=== PATIENT | female | born 1955 | race Caucasian/White ===

== ENCOUNTER → 2017-06-21 | Outpatient (CLI) | payer MEDICAID | LOC: FIMAGING 09:58 | PROVIDERS: ATTEND Internal Medicine Hematology & Oncology | DX: Z12.89 Encounter for screening for malignant neoplasm of other sites (principal); Z85.07 Personal history of malignant neoplasm of pancreas ==

== ENCOUNTER 2018-01-26 17:32 | Inpatient (IN) | payer MEDICAID ==
--- NOTE | 2018-01-26 17:39 | EDPHY ---
H & P Time Seen by Provider: 01/26/18 17:34 HPI/ROS: CHIEF COMPLAINT: Abdominal and back pain HISTORY OF PRESENT ILLNESS: 62-year-old woman got diagnosed with pancreatic cancer about 1 year ago. She had been having worse epigastric abdominal and back pain for the past 2 weeks and saw her oncologist about 10 days ago and started on oral oxycodone. Symptoms today are severe not helped by the pain medication. Not associated with diarrhea but she did have some pretty severe nausea today. She had a normal bowel movement today. Worse with oral intake. REVIEW OF SYSTEMS: Eye: no change in vision ENT: no sore throat Cardiac: no chest pain or syncope Pulmonary: no cough or SOB Abdomen: HPI Musculoskeletal: HPI Skin: no rash Neuro: no headache Constitutional: no fever : no urinary symptoms A comprehensive 10 point review of systems is otherwise negative aside from elements mentioned in the history of present illness. PAST MEDICAL HISTORY: Pancreatic cancer Social history: Here with spouse General Appearance: Alert and conversant, cooperative. Eyes: No scleral icterus. ENT, Mouth: Slightly dry mucous membranes. Respiratory: Normal respiratory effort, breath sounds equal, lungs are clear to auscultation. Cardiovascular: Regular rate and rhythm. Gastrointestinal: Some epigastric tenderness but no rebound or guarding, no peritoneal signs. Neurological: Alert, face symmetric, normal motor and sensory in extremities. Skin: Warm and dry, no rashes. Musculoskeletal: No peripheral edema. Psychiatric: Not agitated. Emergency Department course/MDM: 1758: Discussed with Dr. Parekh and with Dr. Holland, will admit to the hospital for pain control, inadequate on current outpatient oral regimen. Dilaudid 1 mg IV and Zofran 4 mg IV. Labs to include CBC chemistry LFT lipase and protime. Smoking Status: Never smoked Constitutional: Initial Vital Signs Temperature (C) 36.7 C 01/26/18 17:35 Heart Rate 93 01/26/18 17:35 Respiratory Rate 18 01/26/18 17:35 Blood Pressure 124/94 H 01/26/18 17:35 O2 Sat (%) 94 01/26/18 17:35 O2 Delivery Mode Room Air Allergies/Adverse Reactions: nystatin [From Mycostatin] Allergy (Severe, Verified 01/26/18 17:33) Home Medications: Medication Instructions Recorded Oxycodone HCl 01/26/18 Medical Decision Making Differential Diagnosis: Differential considered including but not limited to appendicitis, pancreatic cancer pain, bony metastases, bowel obstruction, pancreatitis, intestinal perforation. - Data Points Laboratory Results: Laboratory Results 01/26/18 17:45 01/26/18 17:45 01/26/1818 01/26/18 17:45 17:45 17:45 WBC 5.52 10^3/uL 10^3/uL (3.80-9.50) RBC 4.43 10^6/uL 10^6/uL (4.18-5.33) Hgb 12.8 g/dL g/dL (12.6-16.3) Hct 37.6 % L % (38.0-47.0) MCV 84.9 fL fL (81.5-99.8) MCH 28.9 pg pg (27.9-34.1) MCHC 34.0 g/dL g/dL (32.4-36.7) RDW 13.0 % % (11.5-15.2) Plt Count 189 10^3/uL 10^3/uL (150-400) MPV 9.2 fL fL (8.7-11.7) Neut % (Auto) 72.0 % % (39.3-74.2) Lymph % (Auto) 16.1 % % (15.0-45.0) Mccone % (Auto) 10.1 % % (4.5-13.0) Eos % (Auto) 0.9 % % (0.6-7.6) Baso % (Auto) 0.7 % % (0.3-1.7) Nucleat RBC Rel Count 0.0 % % (0.0-0.2) Absolute Neuts (auto) 3.97 10^3/uL 10^3/uL (1.70-6.50) Absolute Lymphs (auto) 0.89 10^3/uL L 10^3/uL (1.00-3.00) Absolute Monos (auto) 0.56 10^3/uL 10^3/uL (0.30-0.80) Absolute Eos (auto) 0.05 10^3/uL 10^3/uL (0.03-0.40) Absolute Basos (auto) 0.04 10^3/uL 10^3/uL (0.02-0.10) Absolute Nucleated RBC 0.00 10^3/uL 10^3/uL (0-0.01) Immature Gran % 0.2 % % (0.0-1.1) Immature Gran # 0.01 10^3/uL 10^3/uL (0.00-0.10) PT 14.3 SEC SEC (12.0-15.0) INR 1.09 (0.83-1.16) Sodium 132 mEq/L L mEq/L (135-145) Potassium 3.8 mEq/L mEq/L (3.3-5.0) Chloride 94 mEq/L L mEq/L (97-110) Carbon Dioxide 26 mEq/l mEq/l (22-31) Anion Gap 12 mEq/L mEq/L (8-16) BUN 7 mg/dL mg/dL (7-23) Creatinine 0.5 mg/dL L mg/dL (0.6-1.0) Estimated GFR > 60 Glucose 102 mg/dL H mg/dL (70-100) Calcium 9.2 mg/dL mg/dL (8.5-10.4) Total Bilirubin 0.7 mg/dL mg/dL (0.1-1.4) Conjugated Bilirubin 0.1 mg/dL mg/dL (0.0-0.5) Unconjugated Bilirubin 0.6 mg/dL mg/dL (0.0-1.1) AST 37 IU/L IU/L (14-46) ALT 81 IU/L H IU/L (9-52) Alkaline Phosphatase 79 IU/L IU/L (38-126) Total Protein 6.8 g/dL g/dL (6.3-8.2) Albumin 4.1 g/dL g/dL (3.5-5.0) Lipase 30 IU/L IU/L (23-300) Medications Given: Discontinued Medications Hydromorphone HCl (Dilaudid) 1 mg IVP EDNOW ONE Stop: 01/26/18 17:53 Last Admin: 01/26/18 18:00 Dose: 1 mg Sodium Chloride (Ns) 1,000 mls @ 0 mls/hr IV EDNOW ONE; Wide Open PRN Reason: Protocol Stop: 01/26/18 17:53 Last Admin: 01/26/18 18:00 Dose: 1,000 mls Ondansetron HCl (Zofran) 4 mg IVP EDNOW ONE Stop: 01/26/18 17:53 Last Admin: 01/26/18 18:00 Dose: 4 mg Departure - Departure Disposition: [facility] Acute Clinical Impression: Abdominal pain Qualifiers: Abdominal location: unspecified location Qualified Code(s): R10.9 - Unspecified abdominal pain Pancreatic cancer Qualifiers: Pancreatic malignancy location: unspecified Qualified Code(s): C25.9 - Malignant neoplasm of pancreas, unspecified Condition: Good
[2018-01-26] MEDS ORDERED: ONDANSETRON 4 MG/2 ML VIAL IVP ONE (17:52)
[2018-01-26] MEDS ORDERED: HYDROmorphONE/DILAUDID 2 MG/ML INJ IVP ONE (17:52)
[2018-01-26] MEDS ORDERED: NS 1,000 ML IV ONE (17:52)
[2018-01-26 18:03] LABS: PLATELET COUNT 189 10^3/uL (150-400)
[2018-01-26] MEDS ORDERED: ONDANSETRON DISINTEGRATING 4 MG TAB PO PRN (18:04)
[2018-01-26] MEDS ORDERED: ACETAMINOPHEN 325 MG TAB PO PRN (18:04)
[2018-01-26 18:18] LABS: INR 1.09 (0.83-1.16); PROTIME(PATIENT) 14.3 SEC (12.0-15.0)
[2018-01-26] MEDS ORDERED: BISACODYL 10 MG SUPP PR PRN (18:29)
[2018-01-26] MEDS ORDERED: MAGNESIUM CITRATE 300 ML BOTTLE PO PRN (18:29)
[2018-01-26] MEDS ORDERED: LACTULOSE 20 GM/30 ML UDCUP PO PRN (18:29)
[2018-01-26] MEDS ORDERED: MAGNESIUM HYDROXIDE 30 ML UDCUP PO PRN (18:29)
--- NOTE | 2018-01-26 18:54 | PDGENHP ---
History and Physical - Chief Complaint Abdominal Pain - History of Present Illness Brandt Montes is a 62 yo F with a Pmhx of Pancreatic cancer diagnosed 1 yr ago who presents today with acute on chronic abdominal pain. Her is at bedside who helped with history taking. They report that abdominal pain started about 1 month ago and has significantly increased over the past 48 hours. Pain is located in the epigastric region with radiation to the back. It is described as sharp, currently rated 4/10 after IV pain medication administration. Pain is worse with eating and movement. She has associated nausea with one episode of vomiting 3 days ago. She also reports constipation with last BM this morning after 3 days without one. She has been using magnesium citrate. She was seen by her primary oncologist, Dr. Parekh, 2 weeks ago for this pain and was prescribed 10 mg oxycodone every 4 hours which initially was helping but recently has not improved the pain. She denies any chest pain, SOB, edema, LH/dizziness, hematemesis, melena, hematochezia. History Information - Allergies/Home Medication List Allergies/Adverse Reactions: nystatin [From Mycostatin] Allergy (Severe, Verified 01/26/18 17:33) Home Medications: Ondansetron Odt [Zofran Odt 4 mg (*)] 4 mg PO Q6 PRN 01/26/18 [Last Taken 14:30] Oxycodone HCl 01/26/18 [Last Taken Unknown] I have personally reviewed and updated: family history, medical history, social history, surgical history - Past Medical History cancer - Surgical History Reports: no pertinent surgical hx - Family History Positive for: cancer - Social History Smoking Status: Never smoked Review of Systems Review of Systems: ROS: 10pt was reviewed & negative except for what was stated in HPI & below Physical Exam Physical Exam: Temp Pulse Resp BP Pulse Ox 36.8 C 78 18 135/70 H 97 01/26/18 18:29 01/26/18 18:29 01/26/18 18:29 01/26/18 18:29 01/26/18 18:29 Constitutional: no apparent distress Eyes: PERRL Ears, Nose, Mouth, Throat: moist mucous membranes Cardiovascular: regular rate and rhythym Respiratory: no respiratory distress Gastrointestinal: tenderness (in epigastric region) Genitourinary: no bladder tenderness Skin: warm Musculoskeletal: no muscle tenderness Neurologic: AAOx3 Psychiatric: interacting appropriately Lab Data & Imaging Review 01/26/18 17:45 01/26/18 17:45 WBC 5.52 10^3/uL (3.80-9.50) 01/26/18 17:45 RBC 4.43 10^6/uL (4.18-5.33) 01/26/18 17:45 Hgb 12.8 g/dL (12.6-16.3) 01/26/18 17:45 Hct 37.6 % (38.0-47.0) L 01/26/18 17:45 MCV 84.9 fL (81.5-99.8) 01/26/18 17:45 MCH 28.9 pg (27.9-34.1) 01/26/18 17:45 MCHC 34.0 g/dL (32.4-36.7) 01/26/18 17:45 RDW 13.0 % (11.5-15.2) 01/26/18 17:45 Plt Count 189 10^3/uL (150-400) 01/26/18 17:45 MPV 9.2 fL (8.7-11.7) 01/26/18 17:45 Neut % (Auto) 72.0 % (39.3-74.2) 01/26/18 17:45 Lymph % (Auto) 16.1 % (15.0-45.0) 01/26/18 17:45 Yancey % (Auto) 10.1 % (4.5-13.0) 01/26/18 17:45 Eos % (Auto) 0.9 % (0.6-7.6) 01/26/18 17:45 Baso % (Auto) 0.7 % (0.3-1.7) 01/26/18 17:45 Nucleat RBC Rel Count 0.0 % (0.0-0.2) 01/26/18 17:45 Absolute Neuts (auto) 3.97 10^3/uL (1.70-6.50) 01/26/18 17:45 Absolute Lymphs (auto) 0.89 10^3/uL (1.00-3.00) L 01/26/18 17:45 Absolute Monos (auto) 0.56 10^3/uL (0.30-0.80) 01/26/18 17:45 Absolute Eos (auto) 0.05 10^3/uL (0.03-0.40) 01/26/18 17:45 Absolute Basos (auto) 0.04 10^3/uL (0.02-0.10) 01/26/18 17:45 Absolute Nucleated RBC 0.00 10^3/uL (0-0.01) 01/26/18 17:45 Immature Gran % 0.2 % (0.0-1.1) 01/26/18 17:45 Immature Gran # 0.01 10^3/uL (0.00-0.10) 01/26/18 17:45 PT 14.3 SEC (12.0-15.0) 01/26/18 17:45 INR 1.09 (0.83-1.16) 01/26/18 17:45 Sodium 132 mEq/L (135-145) L 01/26/18 17:45 Potassium 3.8 mEq/L (3.3-5.0) 01/26/18 17:45 Chloride 94 mEq/L (97-110) L 01/26/18 17:45 Carbon Dioxide 26 mEq/l (22-31) 01/26/18 17:45 Anion Gap 12 mEq/L (8-16) 01/26/18 17:45 BUN 7 mg/dL (7-23) 01/26/18 17:45 Creatinine 0.5 mg/dL (0.6-1.0) L 01/26/18 17:45 Estimated GFR > 60 01/26/18 17:45 Glucose 102 mg/dL (70-100) H 01/26/18 17:45 Calcium 9.2 mg/dL (8.5-10.4) 01/26/18 17:45 Total Bilirubin 0.7 mg/dL (0.1-1.4) 01/26/18 17:45 Conjugated Bilirubin 0.1 mg/dL (0.0-0.5) 01/26/18 17:45 Unconjugated Bilirubin 0.6 mg/dL (0.0-1.1) 01/26/18 17:45 AST 37 IU/L (14-46) 01/26/18 17:45 ALT 81 IU/L (9-52) H 01/26/18 17:45 Alkaline Phosphatase 79 IU/L (38-126) 01/26/18 17:45 Total Protein 6.8 g/dL (6.3-8.2) 01/26/18 17:45 Albumin 4.1 g/dL (3.5-5.0) 01/26/18 17:45 Lipase 30 IU/L (23-300) 01/26/18 17:45 Assessment & Plan Assessment: Abdominal pain (Acute) - Duration 1 month with acute worsening in past 48 hours with assoc n/v, constipation - Likely 2/2 to pancreatic cancer - Reports CT Abd 2 weeks ago, not able to locate in system - Lipase WNL, ALT mildly elevated, no other concerning labs to indicate obstruction - Follows with Dr. Parekh, has not had chemotherapy or surgery - Discuss with oncology in the AM if a repeat CT is warranted - Pain and nausea control PRN - May require transition to a long acting pain medication with short acting for breakthrough upon discharge Hyponatremia - Na 132 on admission - Likely hypotonic hyponatremia in setting of decreased PO intake - Will give IVF overnight - F/u BMP in the AM Opioid Induced Constipation - Per patient BM this AM after 3 days without - Will order bowel regimen and magnesium citrate PRN Pancreatic cancer (Acute) - Follows with Dr. Parekh - Oncology consult in the AM FEN: NS @100 ml/hr overnight Ppx: Lovenox Diet: NPO Code: FULL Dispo: Admit to observation, pending clinical course
[2018-01-26] MEDS: HYDROCODONE/APAP 5/325 TAB PO PRN (19:14)
[2018-01-26] MEDS: SENNOSIDES/DOCUSATE SODIUM TAB PO SCH (19:56)
[2018-01-26] MEDS: PROMETHAZINE HCL 25 MG/ML INJ IVP PRN (21:07)
[2018-01-26] MEDS: HYDROmorphONE/DILAUDID 1 MG/ML INJ IVP PRN (21:07)
[2018-01-27] MEDS: HYDROCODONE/APAP 5/325 TAB PO PRN ×4 (01:50→19:46)
[2018-01-27] MEDS: PROMETHAZINE HCL 25 MG/ML INJ IVP PRN (05:00)
[2018-01-27] MEDS: HYDROmorphONE/DILAUDID 1 MG/ML INJ IVP PRN (05:00)
[2018-01-27] MEDS: SENNOSIDES/DOCUSATE SODIUM TAB PO SCH ×2 (08:11→21:04)
[2018-01-27] MEDS ORDERED: ENOXAPARIN 40 MG/0.4 ML SYR SC SCH (09:00)
--- NOTE | 2018-01-27 10:31 | HOSPPROG ---
Hospitalist Progress Note Assessment/Plan: #Acute abdominal pain: Likely multifactorial from cancer, constipation. - PRN IV dilaudid, norco - Considering celiac plexus block - If doesn't get above, may need long-acting opioid with short-acting for breakthrough - Bowel regimen #Pancreatic cancer: Followed by Dr Parekh. Diagnosed fall 2017. Hasn't had chemo. Per patient, had recent CT without significant progression. - Oncology consulted #Hypovolemic hyponatremia: Resolved. Ppx: hold Lovenox with possible procedure Diet: regular Code: FULL Dispo: Continue observation. If pain controlled and tolerating PO, able to dc later today. Otherwise, will keep until tomorrow. Subjective: Didn't sleep much overnight d/t pain. Received iv dilaudid and norco this AM and now pain is completely controlled. Minimal nausea. Last BM yesterday morning. Objective: Vital Signs Temp Pulse Resp BP Pulse Ox 36.5 C 73 16 119/74 97 01/27/18 08:17 01/27/18 08:17 01/27/18 08:17 01/27/18 08:17 01/27/18 08:17 Laboratory Results 01/27/18 03:21 01/26/18 01/27/18 01/28/18 05:59 05:59 05:59 Intake Total 500 Balance 500 PT 14.3 SEC (12.0-15.0) 01/26/18 17:45 INR 1.09 (0.83-1.16) 01/26/18 17:45 - Physical Exam Constitutional: no apparent distress, appears nourished, not in pain Eyes: PERRL, anicteric sclera, EOMI Ears, Nose, Mouth, Throat: moist mucous membranes, hearing normal, ears appear normal, no oral mucosal ulcers Cardiovascular: regular rate and rhythym, no murmur, rub, or gallop Respiratory: no respiratory distress, no rales or rhonchi, clear to auscultation Gastrointestinal: normoactive bowel sounds, soft, non-tender abdomen, no palpable masses Genitourinary: no bladder fullness, no bladder tenderness, no renal bruits Skin: no rashes or abrasions, no fluctuance, no induration Neurologic: AAOx3, sensation intact bilaterally Psychiatric: interacting appropriately, not anxious, not encephalopathic, thought process linear ICD10 Worksheet Patient Problems: Problems Problem Status Onset Abdominal pain Acute Pancreatic cancer Acute
--- NOTE | 2018-01-27 12:21 | ASMTCMCOM ---
CM Note CM Note Notes: Patient seen in interdisciplinary rounds. 62 year old female lives with her admitted via ED for intractable abdominal pain. She has known pancreatic cancer and recently having abdominal pain. Medications being adjusted. Likely to dc independently, CM to follow for needs, Plan: DC to home when medically cleared. Date Signed: 01/27/2018 12:21 PM Electronically Signed By:Ruth Loredo RN
--- NOTE | 2018-01-27 16:57 | PDMN ---
Medical Necessity Medical necessity: [facility] Pain Management GRyo w/ acute abd pain likely r /t pancreatic ca, hyponatremia Na+132, decreased PO intake, IV fluids required, IV opioids for pain control, after 24 hrs pt still requiring IV opioids for pain management, IV antiemetics, not annmarie PO, working on appropriate long acting pain med for d/c, change to IP status 01/27/18 @1508 per MD order as pain not controlled and not tolerating PO requiring another MN.
--- NOTE | 2018-01-27 17:57 | PDCONSULT ---
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 Patient reports the progressive worsening of epigastric abdominal pain over the last 2-3 weeks. She describes the pain is located in the epigastrium with some radiation to the left flank and back. She reports the pain is colicky and stabbing in nature however in the back it feels almost pounding in nature. She reports that the pain has gotten better in the past with eating however hurts more afterwards. She saw Dr. Parekh her primary oncologist on 01/13/2018. At that time her pain was less severe and she was given oxycodone as needed for pain. Patient reports the pain pain is worsening over the last few days and became unbearable which brought her into the emergency room. Patient did have a CT scan on 01/09/2018. At that time it showed that her pancreatic head mass had increased in size from 4.4 x 3.6 cm to 6.1 x 4.0 cm. The tumor infiltrated around the majority of the proximal SMA was also new pancreatic duct dilation and atrophy of the pancreatic body. There is also to 2 hazy tumor infiltration seen around the proximal celiac axis extending toward the right diaphragmatic crura between the aorta and the intrahepatic IVC. Patient was treated overnight with [place] and IV Dilaudid. Patient reports her pain has subsided. She denies fevers chills or drenching night sweats. She does report a roughly is a 7 pound weight loss in the last 2-3 weeks. Review of systems: A complete 12 point review of systems was obtained and found to be negative unless indicated in the history of the present illness Past medical history: Locally advanced pancreatic adenocarcinomapatient has refused traditional therapies Past surgical history: No significant past surgical history Social history: No significant past history of smoking, no alcohol use, no drugs. She is without children. Family history: Mother - bladder cancer in her 80s Maternal grandmother had breast cancer in her 60s Physical examination: Vital signs reviewed General: No acute distress appearing nontoxic appearing female HEENT: Pupils are equal round reactive to light no scleral icterus or conjunctival pallor is appreciated oral mucosa is moist without any evidence of oral pharyngeal lesions Neck: Supple no adenopathy Cardiovascular regular rate and rhythm without rubs thrills gallops or murmurs Chest: Clear to auscultation and percussion bilateral posterior lungs Abdomen: Soft, nondistended, mild pain to palpation in the epigastrium, no rebound or guarding, no organomegaly, fullness palpated in the epigastrium Next extremities: Warm well perfused 2+ dorsalis pedis and radial pulses bilaterally Neurologic: Cranial nerves II through XII are intact 5 out of 5 upper and lower extremity strength bilaterally, alert and oriented x3 Labs and imaging personally reviewed results available in the [facility] Assessment and plan: Patient is a 62-year-old female with history of locally advanced pancreatic adenocarcinoma who presents with acute on chronic epigastric abdominal pain likely secondary to her progressive pancreatic cancer. Problem #1 - cancer related epigastric abdominal pain Patient's current symptoms are likely related to her progressive pancreatic adenocarcinoma. CT scan on 01/09/2018 in the presence of symptoms confirm this. Unlikely in the meantime she is developed anything new such as portal vein thrombosis. Her lipase was normal on presentation ruling out pancreatitis. She has no symptoms concerning for pancreatic insufficiency. -As patient's pain is currently well controlled we will continue with [place] as needed for pain and add a long-acting agent such as MS Contin. -Patient is not interested in evaluation for celiac or SMA block. Problem #2 - locally advanced pancreatic adenocarcinoma Unfortunately patient has missed her opportunity to have operative disease and has progressive locally advanced incurable pancreatic cancer. She has refused conventional therapy. Would agree with consultation with palliative care. Kilo Sun
[2018-01-27] MEDS: morphINE SR 15 MG TAB PO SCH (21:05)
[2018-01-28] MEDS: ONDANSETRON 4 MG/2 ML VIAL IVP PRN ×2 (00:07→11:53)
[2018-01-28] MEDS: HYDROCODONE/APAP 5/325 TAB PO PRN (01:50)
[2018-01-28] MEDS: PROMETHAZINE HCL 25 MG/ML INJ IVP PRN ×2 (01:56→14:29)
[2018-01-28] MEDS: HYDROmorphONE/DILAUDID 1 MG/ML INJ IVP PRN ×7 (04:38→21:45)
[2018-01-28] MEDS: SENNOSIDES/DOCUSATE SODIUM TAB PO SCH ×2 (08:18→21:46)
[2018-01-28] MEDS: morphINE SR 15 MG TAB PO SCH ×2 (08:18→21:45)
[2018-01-28] MEDS: POLYETHYLENE GLYCOL 3350 17 GM PKT PO PRN (11:54)
[2018-01-28] MEDS ORDERED: HYDROmorphONE/DILAUDID 2 MG TAB PO PRN (12:02)
--- NOTE | 2018-01-28 12:56 | ASMTCMCOM ---
CM Note CM Note Notes: Patient plan of care reviewed in rounds. She is contemplating celiac block in IR to aide with reduction of her abdominal pain in the setting of advancing pancreatic cancer. Her pain and nausea have not currently been well controlled. She had been independent at home with her . CM to follow for needs. Plan: TBD Date Signed: 01/28/2018 12:22 PM Electronically Signed By:Ruth Loredo RN
[2018-01-28] MEDS: LORazepam 2 MG/ML INJ IVP PRN ×2 (16:00→21:45)
--- NOTE | 2018-01-28 17:04 | SOAPPROG ---
CINDY Progress Note Assessment/Plan: Assessment/Plan: Patient is a 62-year-old female with history of locally advanced pancreatic adenocarcinoma who presents with acute on chronic epigastric abdominal pain likely secondary to her progressive pancreatic cancer. Problem #1 - cancer related epigastric abdominal pain Patient's current symptoms are likely related to her progressive pancreatic adenocarcinoma. CT scan on 01/09/2018 in the presence of symptoms confirm this. Unlikely in the meantime she is developed anything new such as portal vein thrombosis. Her lipase was normal on presentation ruling out pancreatitis. She has no symptoms concerning for pancreatic insufficiency. It seemed pain control was adequate yesterday however she had peaks of pain overnight and into the morning requiring IV dilaudid. -Recommend having IR evaluate her for celiac plexus block -continue MS contin 15mg BID as baseline pain seems well controlled Problem #2 - locally advanced pancreatic adenocarcinoma Unfortunately patient has missed her opportunity to have operative disease and has progressive locally advanced incurable pancreatic cancer. She has refused conventional therapy. Would agree with consultation with palliative care. [place] Sun Subjective: Patient reports ongoing pain - she required 3 breakthrough doses of pain medication IV despite being put on MS contin. She is also constipated. No new symptoms. Objective: Vital Signs Temp Pulse Resp BP Pulse Ox 37.0 C 93 20 144/82 H 93 01/28/18 15:53 01/28/18 15:53 01/28/18 15:53 01/28/18 15:53 01/28/18 15:53 01/27/18 01/28/18 01/29/18 05:59 05:59 05:59 Intake Total 850 Balance 850 PT 14.3 SEC (12.0-15.0) 01/26/18 17:45 INR 1.09 (0.83-1.16) 01/26/18 17:45 Physical examination: Vital signs reviewed General: No acute distress appearing nontoxic appearing female HEENT: Pupils are equal round reactive to light no scleral icterus or conjunctival pallor is appreciated oral mucosa is moist without any evidence of oral pharyngeal lesions Neck: Supple no adenopathy Cardiovascular regular rate and rhythm without rubs thrills gallops or murmurs Chest: Clear to auscultation and percussion bilateral posterior lungs Abdomen: Soft, nondistended, mild pain to palpation in the epigastrium, no rebound or guarding, no organomegaly, fullness palpated in the epigastrium Next extremities: Warm well perfused 2+ dorsalis pedis and radial pulses bilaterally Neurologic: alert and oriented x3 ICD10 Worksheet Patient Problems: Problems Problem Status Onset Abdominal pain Acute Pancreatic cancer Acute
--- NOTE | 2018-01-28 17:06 | HOSPPROG ---
Hospitalist Progress Note Assessment/Plan: #Acute abdominal pain: Not controlled. Related to progression of pancreatic cancer with involvement of celiac axis and SMA. - Increase MS contin from 15 BID to 15 in am/30 in pm - Increase PRN dilaudid from q4 to q3, has IV and PO available - Discussed with Dr Johnson re: celiac plexus block. Earliest he could perform procedure is . If still inpatient, will consider. - Consult palliative care, patient and very interested #Nausea, emesis: Low concern for bowel obstruction - IV zofran, phenergan PRN #Pancreatic cancer: Followed by Dr Parekh. Diagnosed fall 2017. Progression on recent CT. - Oncology consulted #Hypovolemic hyponatremia: Resolved. Ppx: SCDs Diet: regular Code: FULL Dispo: Continue inpatient admission as still not tolerating PO, requiring IV pain medications Subjective: Had a rough night, lots of pain. Had several episodes of acute sharp pain during day. Also had large volume emesis this afternoon. No fevers. Had BM today. She is more interested in hearing about celiac plexus block now. Objective: Vital Signs Temp Pulse Resp BP Pulse Ox 37.0 C 93 20 144/82 H 93 01/28/18 15:53 01/28/18 15:53 01/28/18 15:53 01/28/18 15:53 01/28/18 15:53 01/27/18 01/28/18 01/29/18 05:59 05:59 05:59 Intake Total 850 Balance 850 PT 14.3 SEC (12.0-15.0) 01/26/18 17:45 INR 1.09 (0.83-1.16) 01/26/18 17:45 ICD10 Worksheet Patient Problems: Problems Problem Status Onset Abdominal pain Acute Pancreatic cancer Acute
[2018-01-29] MEDS: HYDROmorphONE/DILAUDID 1 MG/ML INJ IVP PRN ×2 (01:00→04:00)
[2018-01-29] MEDS: HYDROmorphONE/DILAUDID 2 MG TAB PO PRN ×4 (08:06→23:12)
[2018-01-29] MEDS: morphINE SR 15 MG TAB PO SCH ×2 (08:07→20:20)
[2018-01-29] MEDS: SENNOSIDES/DOCUSATE SODIUM TAB PO SCH ×2 (08:07→20:20)
[2018-01-29] MEDS ORDERED: traMADol 50 MG TAB PO PRN (11:45)
--- NOTE | 2018-01-29 12:44 | ASMTCMCOM ---
CM Note CM Note Notes: Patient plan of care reviewed in interdisciplinary rounds. She is agreeable to information on palliative care. She had integrative care session last evening and is now aware of availbility to her. Her pain is somewhat improved. Matt Lerma and I met with her after rounds and helped relay more information regarding the role palliative care can play in her health . Per the patient they have limited financial resources. Application for matt from [facility] forwarded. No other needs identified at present. CM to follow. Plan: Home with outpatient palliative care via [facility] Date Signed: 01/29/2018 12:43 PM Electronically Signed By:Ruth Loredo RN
[2018-01-29] MEDS: LORazepam 2 MG/ML INJ IVP PRN (13:07)
--- NOTE | 2018-01-29 15:52 | HOSPPROG ---
Hospitalist Progress Note Assessment/Plan: #Acute abdominal pain: Slowly improving. Received 95 morphine equivalents in last 24 hours, split rather evenly between long-acting and breakthrough. Pain related to progression of pancreatic cancer with involvement of celiac axis and SMA. - Continue MS contin 15 in AM/30 in PM - Dilaudid 2mg q3h PRN - Avoid IV dilaudid, use only for very severe breakthrough - Continue ativan PRN, switch to PO - If possible, may meet with IR (Dr Johnson) tomorrow to discuss celiac block. If not, she is interested in seeing him as outpatient - Integrative medicine and palliative care have met with patient #Nausea, emesis: Stable. Low concern for bowel obstruction - Zofran, phenergan PRN #Pancreatic cancer: Followed by Dr Parekh. Diagnosed fall 2017. Progression on recent CT. - Oncology following #Hypovolemic hyponatremia: Resolved. Ppx: SCDs Diet: regular Code: FULL Dispo: Continue inpatient admission as still requiring intermittent IV pain medications. Hopefully discharge tomorrow if pain controlled. Subjective: Doing better today from pain standpoint. Required a couple IV pushes of dilaudid overnight but hasn't used since early AM. Received a couple doses of PO dilaudid throughout day. Had BM yesterday. Objective: Vital Signs Temp Pulse Resp BP Pulse Ox 36.5 C 77 12 110/65 93 01/29/18 08:36 01/29/18 08:36 01/29/18 08:36 01/29/18 08:36 01/29/18 08:36 01/28/18 01/29/18 01/30/18 05:59 05:59 05:59 Intake Total 850 Output Total 1650 Balance 850 -1650 PT 14.3 SEC (12.0-15.0) 01/26/18 17:45 INR 1.09 (0.83-1.16) 01/26/18 17:45 - Physical Exam Constitutional: no apparent distress, appears nourished, not in pain Eyes: PERRL, anicteric sclera, EOMI Ears, Nose, Mouth, Throat: moist mucous membranes, hearing normal, ears appear normal, no oral mucosal ulcers Cardiovascular: regular rate and rhythym, no murmur, rub, or gallop Respiratory: no respiratory distress, no rales or rhonchi, clear to auscultation Gastrointestinal: normoactive bowel sounds, soft, non-tender abdomen, no palpable masses Skin: no rashes or abrasions, no fluctuance, no induration Musculoskeletal: full muscle strength, no muscle tenderness, normal joint ROM Neurologic: AAOx3, sensation intact bilaterally Psychiatric: interacting appropriately, not anxious, not encephalopathic, thought process linear ICD10 Worksheet Patient Problems: Problems Problem Status Onset Abdominal pain Acute Pancreatic cancer Acute
--- NOTE | 2018-01-29 19:55 | SOAPPROG ---
CINDY Progress Note Assessment/Plan: Assessment/Plan: Patient is a 62-year-old female with history of locally advanced pancreatic adenocarcinoma who presents with acute on chronic epigastric abdominal pain likely secondary to her progressive pancreatic cancer. Problem #1 - cancer related epigastric abdominal pain Patient's current symptoms are likely related to her progressive pancreatic adenocarcinoma. CT scan on 01/09/2018 in the presence of symptoms confirm this. Unlikely in the meantime she is developed anything new such as portal vein thrombosis. Her lipase was normal on presentation ruling out pancreatitis. She has no symptoms concerning for pancreatic insufficiency. Patient has still had issues with breakthrough pain, she has used more IV than PO pain medications as needed at this point. -continue MS contin 30mg qhs and 15mg in AM -Limit IV PRN pain medication -Recommend having IR evaluate her for celiac plexus block Problem #2 - locally advanced pancreatic adenocarcinoma Unfortunately patient has missed her opportunity to have operative disease and has progressive locally advanced incurable pancreatic cancer. She has refused conventional therapy. Would agree with consultation with palliative care. Kilo 01/29/18 19:53 Subjective: Patient was given 30mg of mscontin last night and 15mg in the day. She still needed 5x/IV dilaudid. Vomited once yesterday. No change in character of pain. No new pain. Objective: Vital Signs Temp Pulse Resp BP Pulse Ox 36.4 C 86 12 116/73 93 01/29/18 16:00 01/29/18 16:00 01/29/18 16:00 01/29/18 16:00 01/29/18 16:00 01/28/18 01/29/18 01/30/18 05:59 05:59 05:59 Intake Total 850 1200 Output Total 1650 Balance 850 -1650 1200 PT 14.3 SEC (12.0-15.0) 01/26/18 17:45 INR 1.09 (0.83-1.16) 01/26/18 17:45 Physical examination: Vital signs reviewed General: No acute distress appearing nontoxic appearing female HEENT: Pupils are equal round reactive to light no scleral icterus or conjunctival pallor is appreciated oral mucosa is moist without any evidence of oral pharyngeal lesions Neck: Supple no adenopathy Cardiovascular regular rate and rhythm without rubs thrills gallops or murmurs Chest: Clear to auscultation and percussion bilateral posterior lungs Abdomen: Soft, nondistended, mild pain to palpation in the epigastrium, no rebound or guarding, no organomegaly, fullness palpated in the epigastrium Next extremities: Warm well perfused 2+ dorsalis pedis and radial pulses bilaterally Neurologic: alert and oriented x3 ICD10 Worksheet Patient Problems: Problems Problem Status Onset Abdominal pain Acute Pancreatic cancer Acute
[2018-01-29] MEDS: LORazepam 1 MG TAB PO PRN (20:23)
[2018-01-29] MEDS: PROMETHAZINE HCL 25 MG/ML INJ IVP PRN (23:13)
[2018-01-30] MEDS: HYDROmorphONE/DILAUDID 1 MG/ML INJ IVP PRN (03:40)
[2018-01-30] MEDS: morphINE SR 15 MG TAB PO SCH ×2 (10:54→21:16)
[2018-01-30] MEDS: SENNOSIDES/DOCUSATE SODIUM TAB PO SCH ×3 (10:55→21:15)
[2018-01-30] MEDS: POLYETHYLENE GLYCOL 3350 17 GM PKT PO PRN (14:01)
--- NOTE | 2018-01-30 15:02 | ASMTCMCOM ---
CM Note CM Note Notes: Patient plan of care reviewed in interdisciplinary rounds. She is to meet with IR to discuss options of celiac block for abdominal pain likely caused by progression of pancreatic cancer. Kim is to meet with Brandt and her to discuss the role palliative care can play in her symptom management. CM available should other needs arise. Collette Roger Oncology Nurse Navigator following. Plan: Home with palliative care Date Signed: 01/30/2018 03:02 PM Electronically Signed By:Ruth Loredo RN
--- NOTE | 2018-01-30 17:10 | HOSPPROG ---
Hospitalist Progress Note Assessment/Plan: #Acute abdominal pain: Slowly improving but getting nauseated with dilaudid. Will switch to oxycodone. Pain related to progression of pancreatic cancer with involvement of celiac axis and SMA. - Continue MS contin 15 in AM/30 in PM - Discontinue dilaudid - Start oxycodone 5-10mg q3h PRN - Continue ativan PO PRN - Avoid IV medications in anticipation of going home - Got info on celiac plexus block, she wants to wait on this - Integrative medicine and palliative care have met with patient #Nausea, emesis: Stable. Low concern for bowel obstruction - Zofran, phenergan PRN #Pancreatic cancer: Followed by Dr Parekh. Diagnosed fall 2017. Progression on recent CT. - Oncology following #Hypovolemic hyponatremia: Resolved. Ppx: SCDs Diet: regular Code: FULL Dispo: Continue inpatient admission as still requiring intermittent IV pain medications, titration of PO pain medications. Plan to discharge tomorrow if pain controlled. Subjective: Had rough morning, vomited and increased pain. Required some IV dilaudid. She still doesn't feel ready to go home. Met with Dr Richmond, doesn 't want celiac plexus block yet. Objective: Vital Signs Temp Pulse Resp BP Pulse Ox 36.6 C 89 16 123/83 H 92 01/30/18 16:37 01/30/18 16:37 01/30/18 16:37 01/30/18 16:37 01/30/18 16:37 01/29/18 01/30/18 01/31/18 05:59 05:59 05:59 Intake Total 1400 Output Total 1650 Balance -1650 1400 PT 14.3 SEC (12.0-15.0) 01/26/18 17:45 INR 1.09 (0.83-1.16) 01/26/18 17:45 - Physical Exam Constitutional: no apparent distress, appears nourished, not in pain, uncomfortable (intremittently) Eyes: PERRL, anicteric sclera, EOMI Ears, Nose, Mouth, Throat: moist mucous membranes, hearing normal, ears appear normal, no oral mucosal ulcers Cardiovascular: regular rate and rhythym, no murmur, rub, or gallop Respiratory: no respiratory distress, no rales or rhonchi, clear to auscultation Gastrointestinal: normoactive bowel sounds, soft, non-tender abdomen, no palpable masses Skin: no rashes or abrasions, no fluctuance, no induration Musculoskeletal: full muscle strength, no muscle tenderness, normal joint ROM Neurologic: AAOx3, sensation intact bilaterally Psychiatric: interacting appropriately, not anxious, not encephalopathic, thought process linear ICD10 Worksheet Patient Problems: Problems Problem Status Onset Abdominal pain Acute Pancreatic cancer Acute
[2018-01-30] MEDS: LORazepam 1 MG TAB PO PRN ×2 (17:16→21:16)
[2018-01-31] MEDS: oxyCODONE IR 5 MG TAB PO PRN ×2 (05:41→13:42)
[2018-01-31 09:13] VITALS: BP 107/72
[2018-01-31] MEDS: morphINE SR 15 MG TAB PO SCH (09:15)
[2018-01-31] MEDS: SENNOSIDES/DOCUSATE SODIUM TAB PO SCH (09:16)
--- NOTE | 2018-01-31 11:43 | ASMTCMCOM ---
CM Note CM Note Notes: Patient plan of care reviewed with Dr. Hargrove. The patient wishes to go home and will be discharged, No needs identified. [facility] Palliative care to follow as outpatient. Oli Dee janey pending approval. CM available should other needs arise. Plan: Home with no needs. Date Signed: 01/31/2018 11:42 AM Electronically Signed By:Ruth Loredo RN
--- NOTE | 2018-01-31 13:40 | PDDCSUM ---
Discharge Summary Discharge Summary: Date of Admission: 01/26/2018 Date of Discharge: 01/31/2018 Consultants: oncology, IR Discharge Diagnoses: 1. Cancer related abdominal pain 2. Locally advanced pancreatic adenocarcinoma Brief Hospital Course: 62yo F with locally advanced pancreatic adenocarcinoma (for which she has refused conventional therapy) presented with acute worsening or chronic abdominal pain. She had just been started on oxycodone by her oncologist but this wasn't working anymore. Recent outpatient CT on 01/09/18 showed progression of pancreatic tumor size (from 4.4x3.6cm to 6.1x4.0cm) with tumor now infiltrating around the majority of the proximal SMA as well as proximal celiac axis. We consulted IR but patient declined to get celiac plexus block. Titration of her pain medications was a bit of a challenge but ultimately we settled on MS contin 15mg in AM and 30mg in PM with oxycodone IR 5-10mg PRN for breakthrough. In addition, she responded well to ativan PO PRN and was given a supply of this. She was tolerating PO well and moving her bowels. Medications: Please refer to EMR. Changes this admission include addition of MS contin and ativan. Follow Up Plan: 1. Has appt with Dr Parekh on 02/05 2. Referral was made for outpatient palliative care 3. She plans to see the integrative medicine team 4. Consider celiac plexus block for worsening pain in the future Physical Exam: Vitals reviewed, afebrile and stable. A&O, RRR without murmur, lungs clear, abdomen soft and nontender with active bowel sounds, no rashes or edema.
--- NOTE | 2018-01-31 13:59 | ASMTDCNOTE ---
Case Management Discharge Discharge Order Complete? Answers: Yes Patient to Obtain Answers: via Family Medications Transportation Arranged Answers: Family/Friends Family Notified Answers: Yes Discharge Comments Notes: Pt is discharging home today with her and no CM needs. Date Signed: 01/31/2018 01:57 PM Electronically Signed By:AMADA Bettencourt
--- NOTE | 2018-01-31 14:00 | ASMTLACE ---
LACE Length of stay for Answers: 4-6 days current admission Acuity / Level of Answers: Yes Care: Did the patient have an inpatient admission? Comorbidities - select Answers: Any tumor (including all that apply lymphoma or leukemia) # of Emergency department Answers: 1-2 visits in the last 6 months Score: 10 Date Signed: 01/31/2018 01:58 PM Electronically Signed By:AMADA Bettencourt
--- NOTE | 2018-01-31 14:05 | ASDISCHSUM ---
Discharge Information Plan Status:Outpatient Palliative Care Medically Cleared to Leave:01/31/2018 Discharge Date:01/31/2018 CM D/C Disposition:Home, Routine, Self-Care ADT D/C Disposition:Home, Routine, Self-Care Projected Discharge Date:01/31/2018 11:00 AM Transportation at D/C:Family Discharge Delay Reason: Follow-Up Date:01/31/2018 11:00 AM Discharge Slot: Final Diagnosis: Placement Information Referral Type:Palliative Care Referral ID:[id number] Provider Name:[facility] Address 1:[address] Phone Number: Address 2: Fax Number: City:[place] Selection Factors: State:[place] Patient Contact Information Contact Name:KENN Relationship: Address:[facility] [address] Work Phone: [facility] Phone: [facility] Code:[place] [address] Email: Financial Information Financial Class:Medicaid Primary Plan Desc:MEDICA[employer] FIRST MD IP Primary Plan Number:[id number] Secondary Plan Desc: Secondary Plan Number: Assessment Information LACE LACE Length of stay for Answers: 4-6 days current admission Acuity / Level of Answers: Yes Care: Did the patient have an inpatient admission? Comorbidities - select Answers: Any tumor (including all that apply lymphoma or leukemia) # of Emergency department Answers: 1-2 visits in the last 6 months Score: 10 Date Signed: 01/31/2018 01:58 PM Electronically Signed By:AMADA Bettencourt [facility] Progress Note CM Note CM Note Notes: Patient seen in interdisciplinary rounds. 62 year old female lives with her admitted via ED for intractable abdominal pain. She has known pancreatic cancer and recently having abdominal pain. Medications being adjusted. Likely to dc independently, CM to follow for needs, Plan: DC to home when medically cleared. Date Signed: 01/27/2018 12:21 PM Electronically Signed By:Ruth Loredo RN [facility] CM Progress Note CM Note CM Note Notes: Patient plan of care reviewed in rounds. She is contemplating celiac block in IR to aide with reduction of her abdominal pain in the setting of advancing pancreatic cancer. Her pain and nausea have not currently been well controlled. She had been independent at home with her . CM to follow for needs. Plan: TBD Date Signed: 01/28/2018 12:22 PM Electronically Signed By:Ruth Loredo RN [facility] CM Progress Note CM Note CM Note Notes: Patient plan of care reviewed in interdisciplinary rounds. She is agreeable to information on palliative care. She had integrative care session last evening and is now aware of availbility to her. Her pain is somewhat improved. Janey Lerma and I met with her after rounds and helped relay more information regarding the role palliative care can play in her health . Per the patient they have limited financial resources. Application for janey from [employer] forwarded. No other needs identified at present. CM to follow. Plan: Home with outpatient palliative care via [facility] Date Signed: 01/29/2018 12:43 PM Electronically Signed By:Ruth Loredo RN [facility] CM Progress Note CM Note CM Note Notes: Patient plan of care reviewed in interdisciplinary rounds. She is to meet with IR to discuss options of celiac block for abdominal pain likely caused by progression of pancreatic cancer. Kim is to meet with Brandt and her to discuss the role palliative care can play in her symptom management. CM available should other needs arise. Collette Roger Oncology Nurse Navigator following. Plan: Home with palliative care Date Signed: 01/30/2018 03:02 PM Electronically Signed By:Ruth Loredo RN [facility] CM Progress Note CM Note CM Note Notes: Patient plan of care reviewed with Dr. Hargrove. The patient wishes to go home and will be discharged, No needs identified. [facility] Palliative care to follow as outpatient. Oli Dee janey pending approval. CM available should other needs arise. Plan: Home with no needs. Date Signed: 01/31/2018 11:42 AM Electronically Signed By:Ruth Loredo RN Case Management Discharge Plan Note Case Management Discharge Discharge Order Complete? Answers: Yes Patient to Obtain Answers: via Family Medications Transportation Arranged Answers: Family/Friends Family Notified Answers: Yes Discharge Comments Notes: Pt is discharging home today with her and no CM needs. Date Signed: 01/31/2018 01:57 PM Electronically Signed By:AMADA Bettencourt Intervention Information
== END 2018-01-31 14:51 | disposition home or self-care (01) | DRG 281 ==
LOC: F1N 18:37 → OBSVTOIN 01-27 15:08
PROVIDERS: ADMIT Internal Medicine; ATTEND Internal Medicine
DX: C25.9 Malignant neoplasm of pancreas, unspecified (principal); E86.9 Volume depletion, unspecified; G89.3 Neoplasm related pain (acute) (chronic); K59.03 Drug induced constipation; T40.2X5A Adverse effect of other opioids, initial encounter
CPT/HCPCS: 96374; 97165-GO; G0378; J1170; J1650; J2060; J2405; J2550

== ENCOUNTER 2018-02-01 02:23 | Inpatient (IN) | payer MEDICAID ==
[2018-02-01] MEDS ORDERED: ONDANSETRON 4 MG/2 ML VIAL ONE (02:46)
[2018-02-01] MEDS ORDERED: HYDROmorphONE/DILAUDID 2 MG/ML INJ ONE (02:47)
[2018-02-01] MEDS ORDERED: ONDANSETRON 4 MG/2 ML VIAL IVP ONE (02:49)
[2018-02-01] MEDS ORDERED: NS 1,000 ML IV ONE (02:50)
[2018-02-01] MEDS ORDERED: HYDROmorphONE/DILAUDID 2 MG/ML INJ IVP ONE (02:50)
[2018-02-01 02:56] LABS: PLATELET COUNT 223 10^3/uL (150-400)
--- NOTE | 2018-02-01 03:01 | EDPHY ---
H & P Stated Complaint: N/V DC'd today Pancreatic CA Time Seen by Provider: 02/01/18 02:50 HPI/ROS: Chief Complaint: Abdominal pain, nausea, vomiting HPI: 62-year-old woman with advanced pancreatic cancer is presenting with nausea vomiting and abdominal pain. She was discharged from the hospital 11 hr ago after a 4 day admission for abdominal pain. She went home on MS Contin and ondansetron orally. Patient states that when she got home her pain became severe again she has been unable to keep down her oral medications. Pain is exactly like when she presented her before. Is an 12/06. No fevers or chills. ROS: 10 systems were reviewed and were negative except those elements noted in the HPI. PMH: pancreatic cancer Social History: No smoking, no alcohol, no recreational drug use Family History: non-contributory Physical Exam: Gen: Awake, Alert, No Distress HEENT: Nose: no rhinorrhea Eyes: PERRLA, EOMI Mouth: Moist mucosa Neck: Supple, no JVD Chest: nontender, lungs clear to auscultation Heart: S1, S2 normal, no murmur Abd: Soft, diffuse upper abdominal tenderness Back: no CVA tenderness, no midline tenderness Ext: no edema, non-tender Skin: no rash Neuro: CN II-XII intact, Sensation grossly intact, Strength 5/5 in bilateral upper and lower extremities - Personal History Current Tetanus/Diphtheria Vaccine: Unsure Current Tetanus Diphtheria and Acellular Pertussis (TDAP): Unsure - Medical/Surgical History Hx Asthma: No Hx Chronic Respiratory Disease: No Hx Diabetes: No Hx Cardiac Disease: No Hx Renal Disease: No Hx Cirrhosis: No Hx Alcoholism: No Hx HIV/AIDS: No Hx Splenectomy or Spleen Trauma: No Other PMH: PANCREATIC CANCER - Social History Smoking Status: Never smoked Constitutional: Initial Vital Signs Temperature (C) 37 C 02/01/18 02:24 Heart Rate 103 H 02/01/18 02:24 Respiratory Rate 16 02/01/18 02:24 Blood Pressure 129/83 H 02/01/18 02:24 O2 Sat (%) 95 02/01/18 02:24 O2 Delivery Mode Room Air Allergies/Adverse Reactions: nystatin [From Mycostatin] Allergy (Severe, Verified 01/26/18 17:33) Home Medications: Medication Instructions Recorded LORazepam [Ativan (*)] 1 mg PO Q6H PRN #20 tab 01/31/18 Ondansetron Odt [Zofran Odt 4 mg 4 mg PO Q6H PRN #20 tab 01/31/18 (*)] morphINE SR [Ms Contin/Oramorph 15 15 mg PO DAILY #15 tab 01/31/18 mg (*)] morphINE SR [Ms Contin/Oramorph 15 30 mg PO HS #15 tab 01/31/18 mg (*)] oxyCODONE IR [Oxycodone Ir (*)] 5 - 10 mg PO Q3H PRN #30 tab 01/31/18 Medical Decision Making ED Course/Re-evaluation: Patient has uncontrolled abdominal pain secondary to a pancreatic cancer. She has failed outpatient treatment. I have discussed with Dr. Mike, hospitalist. She will admit to her service for pain control and further care. - Data Points Laboratory Results: Laboratory Results 02/01/18 02:48 02/01/18 02/01/18 02:48 02:48 WBC 5.72 10^3/uL 10^3/uL (3.80-9.50) RBC 4.92 10^6/uL 10^6/uL (4.18-5.33) Hgb 14.3 g/dL g/dL (12.6-16.3) Hct 41.6 % % (38.0-47.0) MCV 84.6 fL fL (81.5-99.8) MCH 29.1 pg pg (27.9-34.1) MCHC 34.4 g/dL g/dL (32.4-36.7) RDW 12.7 % % (11.5-15.2) Plt Count 223 10^3/uL 10^3/uL (150-400) MPV 9.3 fL fL (8.7-11.7) Neut % (Auto) 69.4 % % (39.3-74.2) Lymph % (Auto) 14.7 % L % (15.0-45.0) [place] % (Auto) 14.0 % H % (4.5-13.0) Eos % (Auto) 1.0 % % (0.6-7.6) Baso % (Auto) 0.7 % % (0.3-1.7) Nucleat RBC Rel Count 0.0 % % (0.0-0.2) Absolute Neuts (auto) 3.97 10^3/uL 10^3/uL (1.70-6.50) Absolute Lymphs (auto) 0.84 10^3/uL L 10^3/uL (1.00-3.00) Absolute Monos (auto) 0.80 10^3/uL 10^3/uL (0.30-0.80) Absolute Eos (auto) 0.06 10^3/uL 10^3/uL (0.03-0.40) Absolute Basos (auto) 0.04 10^3/uL 10^3/uL (0.02-0.10) Absolute Nucleated RBC 0.00 10^3/uL 10^3/uL (0-0.01) Immature Gran % 0.2 % % (0.0-1.1) Immature Gran # 0.01 10^3/uL 10^3/uL (0.00-0.10) Sodium Pending Potassium Pending Chloride Pending Carbon Dioxide Pending Anion Gap Pending BUN Pending Creatinine Pending Estimated GFR Pending Glucose Pending Calcium Pending Medications Given: Discontinued Medications Hydromorphone HCl (Dilaudid) 1 mg IVP EDNOW ONE Stop: 02/01/18 02:51 Last Admin: 02/01/18 02:52 Dose: 1 mg Sodium Chloride (Ns) 1,000 mls @ 0 mls/hr IV ONCE ONE; Wide Open PRN Reason: Protocol Stop: 02/01/18 02:51 Last Admin: 02/01/18 02:52 Dose: 1,000 mls Ondansetron HCl (Zofran) 4 mg IVP EDNOW ONE Stop: 02/01/18 02:50 Last Admin: 02/01/18 02:52 Dose: 4 mg Departure - Departure Disposition: [facility] Inpatient Acute Clinical Impression: Abdominal pain, Pancreatic cancer Condition: Fair Referrals: Annamarie Acevedo MD [Primary Care Provider] - As per Instructions
[2018-02-01] MEDS ORDERED: METOCLOPRAMIDE 10 MG/2 ML VIAL IVP PRN (04:25)
[2018-02-01] MEDS ORDERED: ACETAMINOPHEN 325 MG TAB PO PRN (04:25)
[2018-02-01] MEDS ORDERED: LORazepam 0.5 MG TAB PO PRN (04:25)
[2018-02-01] MEDS ORDERED: diphenhydrAMINE 25 MG CAP PO PRN (04:25)
[2018-02-01] MEDS: oxyCODONE IR 5 MG TAB PO PRN ×2 (04:44→23:48)
[2018-02-01] MEDS: ONDANSETRON 4 MG/2 ML VIAL IVP PRN ×4 (04:44→22:06)
[2018-02-01] MEDS: HYDROmorphONE/DILAUDID 1 MG/ML INJ IVP PRN ×3 (05:01→23:55)
--- NOTE | 2018-02-01 07:17 | PDGENHP ---
History and Physical - Chief Complaint Intractable nausea vomiting and abdominal pain - History of Present Illness Source-patient provides history appears reliable EMR was reviewed and case discussed with ED provider. HPI-this is a pleasant 62-year-old lady with a past medical history significant for locally invasive the in pancreatic adenocarcinoma who was just discharged from hospital for intractable nausea vomiting abdominal pain 11 hr prior to arrival back in the ER. Patient was previously diagnosed with adenocarcinoma pancreas years ago and had previously declined any kind of intervention. Since that time she has had increasing abdominal pain. She was admitted for pain control and it was thought that she had a good regimen on board that she was willing to continue with however when she got home patient is reports that she was unable to keep anything down and so her pain escalated. Patient denies any fevers or chills. No increased abdominal distension. No diarrhea. In fact patient reports that she has been having some constipation. During her previous hospital stay patient was offered the option need to consider a celiac plexus block however patient was concerned that given this would be the last alternative she wanted to try to utilize on oral medications for control of her nausea vomiting and abdominal pain. History Information - Allergies/Home Medication List Allergies/Adverse Reactions: nystatin [From Mycostatin] Allergy (Severe, Verified 01/26/18 17:33) I have personally reviewed and updated: family history, medical history, social history, surgical history - Past Medical History Additional medical history: Locally invasive pancreatic adenocarcinoma. Chronic oncologic abdominal pain. Recurrent nausea vomiting - Surgical History Reports: no pertinent surgical hx - Family History Positive for: cancer Additional family history: Mother with bladder cancer maternal grandmother breast cancer in his 60s. - Social History Smoking Status: Never smoked Alcohol Use: None Drug Use: None Additional social history: Patient is her is bedside. Cor status-full. Review of Systems Review of Systems: ROS: 10pt was reviewed & negative except for what was stated in HPI & below Constitutional: Reports: weakness (Generalized). Denies: chills, fever Respiratory: Reports: no symptoms Gastrointestinal: Reports: vomitting, abdominal pain, nausea. Denies: abdominal distention Physical Exam Physical Exam: Selected Entries 02/01/18 02:24 Blood Pressure Automatic Method Heart Rate 103 H Respiratory 16 Rate O2 Sat (%) 95 Temperature (C) 37 C Blood Pressure 129/83 H Mean Arterial 98 Pressure (MAP) O2 Delivery Room Air Mode Temperature Oral Source Temp Pulse Resp BP Pulse Ox 36.6 C 84 14 121/76 H 98 02/01/18 03:42 02/01/18 03:42 02/01/18 03:42 02/01/18 03:42 02/01/18 03:42 O2 (L/minute) 2 Constitutional: no apparent distress, chronically ill appearing, uncomfortable, other (No acute distress. Patient is lying asleep in bed. She wakes easily to her name and in fairly good spirits. Does appear acutely ill fatigue have but pleasant and cooperative.) Eyes: PERRL, anicteric sclera, EOMI, No scleral injection Ears, Nose, Mouth, Throat: dry mucous membranes, other (No nasal discharge), No poor dentition Cardiovascular: regular rate and rhythym, no murmur, rub, or gallop, tachycardia , No edema Peripheral Pulses: 2+: dorsalis-pedis (R), dorsalis-pedis (L) Respiratory: no respiratory distress, no rales or rhonchi, clear to auscultation , No expiratory wheeze, No inspiratory crackles Gastrointestinal: other (Hypoactive bowel sounds. Soft but full. Nondistended. ), No rebound, No distension Genitourinary: no bladder tenderness, No soto in urethra Skin: warm, no rashes or abrasions, no fluctuance, other (Pallor) Musculoskeletal: generalized weakness, other (Patient moves all extremities able to up independently.) Neurologic: AAOx3, other (Grossly nonfocal), No facial droop Psychiatric: interacting appropriately, not anxious, not encephalopathic, thought process linear, other (Patient pleasant and cooperative.) Lab Data & Imaging Review 02/01/18 02:48 02/01/18 02:48 WBC 5.72 10^3/uL (3.80-9.50) 02/01/18 02:48 RBC 4.92 10^6/uL (4.18-5.33) 02/01/18 02:48 Hgb 14.3 g/dL (12.6-16.3) 02/01/18 02:48 Hct 41.6 % (38.0-47.0) 02/01/18 02:48 MCV 84.6 fL (81.5-99.8) 02/01/18 02:48 MCH 29.1 pg (27.9-34.1) 02/01/18 02:48 MCHC 34.4 g/dL (32.4-36.7) 02/01/18 02:48 RDW 12.7 % (11.5-15.2) 02/01/18 02:48 Plt Count 223 10^3/uL (150-400) 02/01/18 02:48 MPV 9.3 fL (8.7-11.7) 02/01/18 02:48 Neut % (Auto) 69.4 % (39.3-74.2) 02/01/18 02:48 Lymph % (Auto) 14.7 % (15.0-45.0) L 02/01/18 02:48 Kimble % (Auto) 14.0 % (4.5-13.0) H 02/01/18 02:48 Eos % (Auto) 1.0 % (0.6-7.6) 02/01/18 02:48 Baso % (Auto) 0.7 % (0.3-1.7) 02/01/18 02:48 Nucleat RBC Rel Count 0.0 % (0.0-0.2) 02/01/18 02:48 Absolute Neuts (auto) 3.97 10^3/uL (1.70-6.50) 02/01/18 02:48 Absolute Lymphs (auto) 0.84 10^3/uL (1.00-3.00) L 02/01/18 02:48 Absolute Monos (auto) 0.80 10^3/uL (0.30-0.80) 02/01/18 02:48 Absolute Eos (auto) 0.06 10^3/uL (0.03-0.40) 02/01/18 02:48 Absolute Basos (auto) 0.04 10^3/uL (0.02-0.10) 02/01/18 02:48 Absolute Nucleated RBC 0.00 10^3/uL (0-0.01) 02/01/18 02:48 Immature Gran % 0.2 % (0.0-1.1) 02/01/18 02:48 Immature Gran # 0.01 10^3/uL (0.00-0.10) 02/01/18 02:48 Sodium 135 mEq/L (135-145) 02/01/18 02:48 Potassium 3.8 mEq/L (3.3-5.0) 02/01/18 02:48 Chloride 92 mEq/L (97-110) L 02/01/18 02:48 Carbon Dioxide 29 mEq/l (22-31) 02/01/18 02:48 Anion Gap 14 mEq/L (8-16) 02/01/18 02:48 BUN 13 mg/dL (7-23) 02/01/18 02:48 Creatinine 0.5 mg/dL (0.6-1.0) L 02/01/18 02:48 Estimated GFR > 60 02/01/18 02:48 Glucose 129 mg/dL (70-100) H 02/01/18 02:48 Calcium 9.5 mg/dL (8.5-10.4) 02/01/18 02:48 Assessment & Plan Assessment: 62-year-old female with history of locally invasive pancreatic adenocarcinoma with extension around the SMA presents back to the hospital with complaints of intractable abdominal pain nausea vomiting. Acute on chronic oncologic abdominal pain - patient received Dilaudid and antiemetics in the emergency department. She is on had improvement in her symptoms with continued use of IV pain medications and antiemetics. Again reviewed with the patient her option to consider a celiac plexus block but she is not yet ready to eliminate all her options for oral control at home. Possibly consider discharge with suppository options or Intractable nausea vomiting - improved with antiemetics. Pancreatic cancer (Acute) - on repeated imaging on most recent hospital admission showed enlargement of the tumor with extension around the SMA. Is no longer amenable to any intervention. Patient previously declined any treatment. Hypochloremia likely related to volume depletion in setting of nausea vomiting. Continue with IV fluids monitor. opiate induced constipation - bowel protocol ordered. FEN - NS for gentle hydration. encourage po hydration when nausea/vomiting with improved control. advance diet as tolerated. PPX - SCDs. holding anticoagulation pending additional discussion with patient regarding consideration for block. COR - FULL. Dispo - Patient admitted to observation on med/onc floor pending imrpovement in sx.
[2018-02-01] MEDS ORDERED: LACTULOSE 20 GM/30 ML UDCUP PO PRN (07:38)
[2018-02-01] MEDS ORDERED: POLYETHYLENE GLYCOL 3350 17 GM PKT PO PRN ×2 (07:38→17:11)
[2018-02-01] MEDS ORDERED: MAGNESIUM HYDROXIDE 30 ML UDCUP PO PRN (07:38)
[2018-02-01] MEDS: SENNOSIDES/DOCUSATE SODIUM TAB PO SCH ×2 (10:32→22:58)
--- NOTE | 2018-02-01 14:11 | ASMTCMCOM ---
CM Note CM Note Notes: Pt returns to the hospital after discharging yesterday. She has pancreatic ca diagnosed a few years ago and has declined intervention. Pt in chronic abdominal pain, returns with worsening pain. Pt lives at home with her and was dc'd with no needs, Kim was to f/u with pt at home. Anticipate when pain is under control she will dc home w/support of . DC Plan: Kim oupt Date Signed: 02/01/2018 02:10 PM Electronically Signed By:Blanca Bojorquez RN
[2018-02-01] MEDS ORDERED: ONDANSETRON DISINTEGRATING 4 MG TAB PO PRN (15:41)
[2018-02-01] MEDS ORDERED: POLYETHYLENE GLYCOL 3350 17 GM PKT PO ONE (17:15)
[2018-02-01] MEDS: morphINE SR 15 MG TAB PO SCH (22:58)
[2018-02-02] MEDS: ONDANSETRON 4 MG/2 ML VIAL IVP PRN ×3 (02:17→18:00)
[2018-02-02] MEDS: NS 1,000 ML IV SCH ×2 (02:57→16:34)
[2018-02-02] MEDS: HYDROmorphONE/DILAUDID 1 MG/ML INJ IVP PRN ×7 (03:26→21:31)
[2018-02-02] MEDS: PROMETHAZINE HCL 25 MG/ML INJ IVP PRN ×2 (05:01→10:54)
[2018-02-02] MEDS: POLYETHYLENE GLYCOL 3350 17 GM PKT PO SCH (10:54)
[2018-02-02] MEDS: morphINE SR 15 MG TAB PO SCH ×2 (10:54→19:50)
[2018-02-02] MEDS: SENNOSIDES/DOCUSATE SODIUM TAB PO SCH ×2 (10:55→19:51)
[2018-02-02] MEDS: BISACODYL 10 MG SUPP PR PRN (14:01)
[2018-02-02] MEDS ORDERED: MAGNESIUM CITRATE 300 ML BOTTLE PO ONE (14:12)
[2018-02-02] MEDS ORDERED: BISACODYL 10 MG SUPP PR ONE (14:12)
--- NOTE | 2018-02-02 14:12 | HOSPPROG ---
Hospitalist Progress Note Assessment/Plan: 62 yo F w pancreatic CA here w abd pain and constipation constipation: i think this is really driving her sx enema and suppository film not suggestive of obstruction abd pain: rec celiac nerve block continue morphine as prescribed vomiting: likely constipation some concern that pain meds could be causing follow proph: lmwh dispo: inpt Subjective: abd film w likely no obstruction, no free air (interp by me). vomitied after lactulose Objective: Vital Signs Temp Pulse Resp BP Pulse Ox 36.6 C 84 14 126/74 H 94 02/02/18 08:54 02/02/18 08:54 02/02/18 08:54 02/02/18 08:54 02/02/18 08:54 02/01/18 02/02/18 02/03/18 05:59 05:59 05:59 Intake Total 1300 750 900 Output Total 1750 Balance 1300 -1000 900 - Physical Exam Constitutional: no apparent distress, appears nourished Eyes: PERRL, anicteric sclera Ears, Nose, Mouth, Throat: moist mucous membranes, hearing normal Cardiovascular: regular rate and rhythym, no murmur, rub, or gallop Respiratory: no respiratory distress, no rales or rhonchi Gastrointestinal: other (bowel sounds hypoactive but present) Genitourinary: No soto in urethra Skin: warm, normal color Musculoskeletal: full muscle strength, no muscle tenderness ICD10 Worksheet Patient Problems: Problems Problem Status Onset Abdominal pain Acute Pancreatic cancer Acute
[2018-02-02] MEDS: LORazepam 1 MG TAB PO PRN (17:46)
[2018-02-02] MEDS: oxyCODONE IR 5 MG TAB PO PRN (19:46)
[2018-02-03] MEDS: oxyCODONE IR 5 MG TAB PO PRN ×4 (00:25→21:23)
[2018-02-03] MEDS: LORazepam 1 MG TAB PO PRN (00:25)
[2018-02-03] MEDS: NS 1,000 ML IV SCH (03:49)
[2018-02-03] MEDS: HYDROmorphONE/DILAUDID 1 MG/ML INJ IVP PRN (06:17)
[2018-02-03] MEDS: SENNOSIDES/DOCUSATE SODIUM TAB PO SCH ×2 (09:54→21:22)
[2018-02-03] MEDS: morphINE SR 15 MG TAB PO SCH ×2 (09:54→21:00)
[2018-02-03] MEDS: POLYETHYLENE GLYCOL 3350 17 GM PKT PO SCH (09:59)
[2018-02-03] MEDS: ENOXAPARIN 40 MG/0.4 ML SYR SC SCH (10:00)
--- NOTE | 2018-02-03 11:41 | ASMTCMCOM ---
CM Note CM Note Notes: Patient reviewed in rounds. She is very anxious and shares with me that her pain was not controlled at home. Palliative Care was to see her today. I have spoken to Kim and they will come to see her between 1:30 and 3:30 to assist with symptom control. She is still contemplating plexus block. CM to follow for needs. Plan: Likely home with palliative care when medically cleared for discharge. Date Signed: 02/03/2018 11:40 AM Electronically Signed By:Ruth Loredo RN
[2018-02-03] MEDS ORDERED: morphINE SR 15 MG TAB PO SCH (14:40)
--- NOTE | 2018-02-03 14:42 | HOSPPROG ---
Hospitalist Progress Note Assessment/Plan: 62 yo F w pancreatic CA here w abd pain and constipation constipation: has moved bowels abd pain: rec celiac nerve block- she is reluctant to do this increase ms contin to 15-15-30 she is reliant on IV pain meds we discussed how we would increase long acting pain meds, dc iv pain meds AM 02/04 anxiety: long discussion w her today add low dose klonopin vomiting: likely constipation some concern that pain meds could be causing follow 02/03- has resolved proph: lmwh code: full given anxiety issues, did not address code status dispo: inpt Subjective: nursding notes a fair amount of anxiety in conjunction w pain Objective: Vital Signs Temp Pulse Resp BP Pulse Ox 36.8 C 74 15 105/66 98 02/03/18 09:09 02/03/18 09:09 02/03/18 09:09 02/03/18 09:09 02/03/18 09:09 02/02/18 02/03/18 02/04/18 05:59 05:59 05:59 Intake Total 750 3168 Output Total 1750 1000 Balance -1000 2168 - Physical Exam Constitutional: no apparent distress, appears nourished Eyes: PERRL, anicteric sclera Ears, Nose, Mouth, Throat: moist mucous membranes, hearing normal Cardiovascular: regular rate and rhythym, no murmur, rub, or gallop Respiratory: no respiratory distress, no rales or rhonchi Gastrointestinal: normoactive bowel sounds, soft, non-tender abdomen Genitourinary: no bladder fullness, No soto in urethra Skin: warm, normal color Musculoskeletal: full muscle strength, no muscle tenderness Neurologic: AAOx3, sensation intact bilaterally Psychiatric: interacting appropriately ICD10 Worksheet Patient Problems: Problems Problem Status Onset Abdominal pain Acute Pancreatic cancer Acute
--- NOTE | 2018-02-03 15:40 | PDMN ---
Medical Necessity Medical necessity: MCG PGPM Pain Management: 62 yo w/ locally invasive pancreatic ca w/ c/o intractable abd pain, n/v. Initiially OBS but pt cont with constipation, vomiting and sig abd pain. cont need for freq IV dilaudid admin on top of PO opioids, cont w/ freq IV antiemetic needs, considering celiac nerve block. Change to IP status for ongoing IV pain management and IV antiemetics 02/03/18 @1450 per MD order.
[2018-02-03] MEDS: ONDANSETRON 4 MG/2 ML VIAL IVP PRN (17:15)
[2018-02-03] MEDS: clonazePAM 0.5 MG TAB PO SCH ×2 (18:53→21:00)
[2018-02-03] MEDS: PROMETHAZINE HCL 25 MG/ML INJ IVP PRN (21:23)
[2018-02-04] MEDS: oxyCODONE IR 5 MG TAB PO PRN ×4 (00:10→10:40)
[2018-02-04] MEDS: LORazepam 1 MG TAB PO PRN ×2 (01:44→10:55)
[2018-02-04] MEDS: HYDROmorphONE/DILAUDID 1 MG/ML INJ IVP PRN ×3 (01:56→18:27)
[2018-02-04] MEDS: CALCIUM CARBONATE 500 MG CHEWABLE TAB PO PRN ×3 (02:01→14:01)
[2018-02-04] MEDS: SENNOSIDES/DOCUSATE SODIUM TAB PO SCH ×2 (10:36→23:05)
[2018-02-04] MEDS: POLYETHYLENE GLYCOL 3350 17 GM PKT PO SCH (10:40)
[2018-02-04] MEDS: clonazePAM 0.5 MG TAB PO SCH (10:42)
[2018-02-04] MEDS: morphINE SR 15 MG TAB PO SCH (10:43)
[2018-02-04] MEDS: ENOXAPARIN 40 MG/0.4 ML SYR SC SCH (10:56)
--- NOTE | 2018-02-04 10:59 | HOSPPROG ---
Hospitalist Progress Note Assessment/Plan: # cancer related abd pain - change long acting narcotics to oxycontin 10 bid (not tolerating ms contin) - cont oxy IR - refused celiac block # locally advanced pancreatic cancer - has refused conventional treatment # anxiety - would prefer to take ativan over klonopin # emesis - as above, also consider constipation # GERD - start protonix, cont TUMs but caution d/t constipation # dvt ppx - lovenox Subjective: emesis with morphine SR; no BM today but feels like she will; ongoing abd pain Objective: Vital Signs Temp Pulse Resp BP Pulse Ox 36.6 C 75 14 120/73 98 02/04/18 09:04 02/04/18 09:04 02/04/18 09:04 02/04/18 09:04 02/04/18 09:04 02/03/18 02/04/18 02/05/18 05:59 05:59 05:59 Intake Total 750 Output Total 1550 Balance -800 chart reviewed AXR reviewed - Physical Exam Constitutional: no apparent distress, appears nourished Cardiovascular: regular rate and rhythym, no murmur, rub, or gallop Respiratory: no respiratory distress, no rales or rhonchi, clear to auscultation Gastrointestinal: normoactive bowel sounds, soft, non-tender abdomen, No guarding, No rebound ICD10 Worksheet Patient Problems: Problems Problem Status Onset Abdominal pain Acute Pancreatic cancer Acute
[2018-02-04] MEDS: PANTOPRAZOLE SODIUM 40 MG TAB PO SCH (12:00)
--- NOTE | 2018-02-04 12:46 | ASMTCMCOM ---
CM Note CM Note Notes: Patient plan of care reviewed in rounds. She states that her medications changes have been helpful. She asked that CM return and have discussion. Her visit with DASHAWN javed Kim was informative. She is leaning towards hospice care as she knows she is unlikely to pursue conventional treatment at this time. She was curious as to whether or not seeking her other treatments would be possible should she elect to go with Hospice care as she wants to see her balloon maker. She is going to call the DASHAWN Orantes to discuss it further. CM available should other needs arise. Plan: Likely home with Hospice vs palliative. Date Signed: 02/04/2018 12:46 PM Electronically Signed By:Ruth Loredo RN
[2018-02-04] MEDS: ONDANSETRON 4 MG/2 ML VIAL IVP PRN ×2 (16:04→21:41)
[2018-02-04] MEDS: BISACODYL 10 MG SUPP PR PRN (18:37)
[2018-02-05] MEDS: PROMETHAZINE HCL 25 MG/ML INJ IVP PRN ×3 (00:17→16:02)
[2018-02-05] MEDS: oxyCODONE IR 5 MG TAB PO PRN ×4 (01:02→22:53)
[2018-02-05] MEDS: HYDROmorphONE/DILAUDID 1 MG/ML INJ IVP PRN ×3 (02:20→20:51)
[2018-02-05] MEDS: CALCIUM CARBONATE 500 MG CHEWABLE TAB PO PRN (04:49)
[2018-02-05] MEDS: SENNOSIDES/DOCUSATE SODIUM TAB PO SCH ×2 (09:05→20:52)
[2018-02-05] MEDS: PANTOPRAZOLE SODIUM 40 MG TAB PO SCH (09:05)
[2018-02-05] MEDS: ENOXAPARIN 40 MG/0.4 ML SYR SC SCH (09:06)
[2018-02-05] MEDS: POLYETHYLENE GLYCOL 3350 17 GM PKT PO SCH (11:41)
--- NOTE | 2018-02-05 11:54 | ASMTCMCOM ---
CM Note CM Note Notes: Patient plan of care reviewed in rounds. Brandt is quite clear she would prefer to home with hospice . Rolanda her palliative SHOE SHINER will be here this afternoon to assist Brandt and her . Will send hospice order via [employer]. CM available should other needs arise. Plan: Home with hospice. Date Signed: 02/05/2018 11:54 AM Electronically Signed By:Ruth Loredo RN
[2018-02-05] MEDS: ONDANSETRON 4 MG/2 ML VIAL IVP PRN ×2 (12:46→16:28)
[2018-02-05] MEDS ORDERED: morphINE 10 MG/0.5 ML UDSYR PO PRN (13:24)
--- NOTE | 2018-02-05 13:25 | HOSPPROG ---
Hospitalist Progress Note Assessment/Plan: # cancer related abd pain - change long acting narcotics to oxycontin 10 -> 20 bid (not tolerating ms contin) - cont oxy IR, add roxanol today - refused celiac block # locally advanced pancreatic cancer - has refused conventional treatment - hospice consult today # anxiety - would prefer to take ativan over klonopin # emesis - as above, also consider constipation # GERD - start protonix, cont TUMs but caution d/t constipation # dvt ppx - lovenox Subjective: still with abdominal pain; has just received dialudid IV with some relief Objective: Vital Signs Temp Pulse Resp BP Pulse Ox 36.7 C 91 16 120/69 95 02/05/18 09:02 02/05/18 09:02 02/05/18 09:02 02/05/18 09:02 02/05/18 09:02 02/04/18 02/05/18 02/06/18 05:59 05:59 05:59 Intake Total 750 1600 Output Total 1550 1400 Balance -800 200 hig risk on iv narcotics - Physical Exam Constitutional: uncomfortable, other (holding her abdomen) Eyes: anicteric sclera Ears, Nose, Mouth, Throat: hearing normal Cardiovascular: regular rate and rhythym, no murmur, rub, or gallop Respiratory: no respiratory distress, no rales or rhonchi, clear to auscultation Gastrointestinal: No distension Skin: warm Musculoskeletal: full muscle strength Neurologic: AAOx3 Psychiatric: anxious (mild) ICD10 Worksheet Patient Problems: Problems Problem Status Onset Abdominal pain Acute Pancreatic cancer Acute
[2018-02-05] MEDS: LR 1,000 ML IV SCH (18:57)
[2018-02-05] MEDS: LORazepam 1 MG TAB PO PRN (20:51)
[2018-02-06] MEDS: HYDROmorphONE/DILAUDID 1 MG/ML INJ IVP PRN (00:05)
[2018-02-06] MEDS: ONDANSETRON 4 MG/2 ML VIAL IVP PRN (00:05)
[2018-02-06] MEDS: LR 1,000 ML IV SCH (03:28)
[2018-02-06] MEDS: oxyCODONE IR 5 MG TAB PO PRN ×3 (03:38→14:49)
[2018-02-06] MEDS: LORazepam 1 MG TAB PO PRN ×3 (03:38→14:54)
[2018-02-06] MEDS ORDERED: NS W/ 20 KCl/L 1,000 ML IV SCH (06:45)
[2018-02-06] MEDS: POLYETHYLENE GLYCOL 3350 17 GM PKT PO SCH (10:20)
[2018-02-06] MEDS: SENNOSIDES/DOCUSATE SODIUM TAB PO SCH ×2 (10:20→10:23)
[2018-02-06] MEDS: PANTOPRAZOLE SODIUM 40 MG TAB PO SCH (10:21)
[2018-02-06 12:08] VITALS: BP 116/70
[2018-02-06] MEDS: ENOXAPARIN 40 MG/0.4 ML SYR SC SCH (12:28)
--- NOTE | 2018-02-06 14:46 | ASMTLACE ---
LACE Length of stay for Answers: 2 days current admission Acuity / Level of Answers: Yes Care: Did the patient have an inpatient admission? Comorbidities - select Answers: Any tumor (including all that apply lymphoma or leukemia) Opioid dependence / Chronic pain # of Emergency department Answers: 1-2 visits in the last 6 months Score: 12 Date Signed: 02/06/2018 02:45 PM Electronically Signed By:Christina Quach
--- NOTE | 2018-02-06 14:47 | ASMTDCNOTE ---
Case Management Discharge Discharge Order Complete? Answers: Yes Patient to Obtain Answers: Other Notes: [facility] Medications Transportation Arranged Answers: Family/Friends Faxed Final Orders Answers: Yes Agency/Facility Transfer Answers: Yes Report Printed & Faxed to Receiving Agency Family Notified Answers: Yes Discharge Comments Notes: Pt returning home with [facility]. Date Signed: 02/06/2018 02:47 PM Electronically Signed By:Christina Quach
--- NOTE | 2018-02-06 14:55 | PDIAF ---
- Diagnosis Diagnosis: cancer Code Status: Full Code - Medication Management Discharge Medications: Medications to Continue on Transfer Haloperidol [Haldol 1 MG (*)] 1 mg PO Q6 #30 tab 02/06/18 [Last Taken Unknown] LORazepam [Ativan (*)] 0.5 - 1 mg PO Q2 PRN #60 tab 02/06/18 [Last Taken Unknown ] Polyethylene Glycol 3350 [Miralax 17 gm (*)] 17 gm PO DAILY pkt 02/06/18 [Last Taken Unknown] Sennosides/Docusate Sodium [Senokot-S] 1 - 2 tab PO BID tab 02/06/18 [Last Taken Unknown] oxyCODONE CR [Oxycontin] 20 mg PO BID #60 tab 02/06/18 [Last Taken Unknown] oxyCODONE IR [Oxycodone Ir (*)] 5 - 10 mg PO Q1 PRN #60 tab 02/06/18 [Last Taken Unknown] Discharge Medications: Refer to the Discharge Home Medication list for PRN reason. - Orders Services needed: Registered Nurse, Certified Lunchroom Monitor Diet Recommendation: no restrictions on diet - Follow Up Care Current Providers and Referrals: Annamarie Acevedo MD [Primary Care Provider] - As per Instructions
--- NOTE | 2018-02-06 15:25 | GDS ---
FINAL DIAGNOSES: 1. Uncontrolled abdominal pain due to pancreatic cancer. 2. Locally advanced pancreatic cancer. 3. Anxiety. 4. Nausea, vomiting. 5. Gastroesophageal reflux disease. HOSPITAL COURSE: 62-year-old female with locally advanced pancreatic cancer was admitted for uncontr olled pain. She also had significant nausea and vomiting. We have worked on her pain regimen, which appears to have been successful in the last 24 hours. She has received OxyContin 20 mg p.o. b.i.d. She is also getting oxycodone 10 mg as needed as well as Ativan approximately t.i.d. She has met [facility]. She is interested in pursuing home hospice. She will be discharged home with Kim bailey. I have provided her medications to control her symptoms. Additionally, I have added Haldol for uncontrolled nausea. She is agreeable to this plan. She is discharged in guarded condition to home hospice. BILLING: I spent more than 30 minutes on the day of discharge coordinating care. /[id number]/MODL
== END 2018-02-06 16:45 | disposition hospice, home (50) | DRG 861 ==
LOC: F1N 03:40 → OBSVTOIN 02-03 14:50
PROVIDERS: ADMIT Family Medicine; ATTEND Family Medicine
DX: G89.3 Neoplasm related pain (acute) (chronic) (principal); C25.9 Malignant neoplasm of pancreas, unspecified; E87.8 Other disorders of electrolyte and fluid balance, not elsewhere classified; E86.9 Volume depletion, unspecified; F41.9 Anxiety disorder, unspecified; K21.9 Gastro-esophageal reflux disease without esophagitis; K59.03 Drug induced constipation
CPT/HCPCS: 96374; G0378; J1170; J1650; J2405; J2550